=== PATIENT | female | born 1950 | race Caucasian/White ===

== ENCOUNTER → 2019-11-08 | Outpatient (CLI) | payer MEDICARE ==
[~2019-11-08] MED LIST: HYZAAR 50-12.51 EACH PO; PANTOPRAZOLE SO40 MG PO; REGADENOSON 0.4 MG/5 ML SYR IV ONE
--- NOTE | 2019-11-14 15:01 | Myoview Stress Test ---
DATE OF STUDY: 11/08/2019 09:14:00 Stress Test - Treadmill ONLY PROCEDURE: Rest/stress single isotope SPECT imaging with pharmacologic stress and gated SPECT imaging. INDICATION: Chest pain. PROCEDURE IN DETAIL: Pharmacologic stress testing was performed with regadenoson per protocol. The heart rate was 61 beats per minute at rest and increased to 94 beats per minute during the regadenoson infusion. The resting blood pressure was 131/64 mmHg and decreased to 121/54 mmHg, which is a normal response. The resting electrocardiogram demonstrated normal sinus rhythm. There were no ST-segment changes suggestive of myocardial ischemia. IMPRESSION: Myocardial perfusion imaging was performed at rest following the injection of 11 mCi of tetrofosmin. At peak pharmacologic effect, the patient was injected with 31 mCi of tetrofosmin. Gated post-stress tomographic imaging was performed. FINDINGS: The overall quality of the study is fair. Left ventricular cavity is noted to be normal size on the rest and stress studies. SPECT images demonstrate homogeneous tracer distribution throughout the myocardium. Gated SPECT imaging reveals normal myocardial thickening and wall motion. The left ventricular ejection fraction is calculated to be greater than 70%. IMPRESSION: Myocardial perfusion imaging is normal. Overall, left ventricular systolic function was normal without regional wall motion abnormalities. Clare Aaron MD ABS/MODL /[id number]
== END ==
LOC: NM 09:01
PROVIDERS: ATTEND Internal Medicine Cardiovascular Disease
DX: R07.9 Chest pain, unspecified (principal)
CPT/HCPCS: 78452; 93017; A9502; J2785

== ENCOUNTER 2022-09-16 14:32 | Emergency (ER) | payer MEDICARE, OTHER ==
[~2022-09-16] VITALS: Ht 170.2 cm; Wt 99.8 kg
[~2022-09-16 14:32] MED LIST changes: -REGADENOSON 0.4 MG/5 ML SYR IV ONE
[2022-09-16] MEDS ORDERED: ACETAMINOPHEN 325 MG/10 ML UDC PO ONE (14:45)
== END 2022-09-16 16:28 | disposition home or self-care (01) ==
LOC: FSED 14:48
DX: S00.83XA Contusion of other part of head, initial encounter (principal); S60.222A Contusion of left hand, initial encounter; W01.0XXA Fall on same level from slipping, tripping and stumbling without subsequent striking against object, initial encounter; Y93.01 Activity, walking, marching and hiking; Y92.481 Parking lot as the place of occurrence of the external cause; I10 Essential (primary) hypertension; E78.5 Hyperlipidemia, unspecified
CPT/HCPCS: 70450; 99283